=== PATIENT | male | born 1975 | race Caucasian/White ===

== ENCOUNTER 2019-01-21 19:51 | Emergency (ER) | payer SELFPAY ==
[~2019-01-21] VITALS: Ht 175.3 cm; Wt 87.4 kg
[2019-01-21 19:56] VITALS: Ht 175.3 cm; Wt 87.4 kg
[2019-01-21] MEDS ORDERED: SULF1TAB31 PO (22:20)
[2019-01-21] MEDS ORDERED: IBUP800T48 PO (22:20)
[2019-01-21] MEDS ORDERED: CEPH-443 PO (22:20)
[2019-01-21 22:34] VITALS: BP 141/90; PULSE 82; RESP 18
--- NOTE | 2019-01-22 05:31 | ERD ---
ER Documentation Chief Complaint Chief Complaint R LEG PAIN X'S 2 DAYS. HPI 43-year-old male with no significant past medical history presenting to the emergency department complains of redness and swelling and pain to his right lower extremity for 1 day..He states the area began as one lesion and spread outwards. Patient reports fever yesterday of 100.5 F. He denies any fevers today. He tried no medication for relief of symptoms. Associated symptoms include mild pain. He took Tylenol at home with some relief. He denies any dizziness, fevers, or other symptoms. ROS All systems reviewed and are negative except as per history of present illness. Medications Home Meds Active Scripts Ibuprofen* (Motrin*) 800 Mg Tab, 800 MG PO Q6, #30 TAB Prov:VANNA CRUMP PA-C 01/21/19 Sulfamethoxazole/Trimethoprim* (Bactrim Ds* Tablet) 1 Each Tablet, 1 TAB PO BID, #14 TAB Prov:VANNA CRUMP PA-C 01/21/19 Cephalexin* (Keflex*) 500 Mg Capsule, 500 MG PO QID for 7 Days, CAP Prov:VANNA CRUMP PA-C 01/21/19 Allergies Allergies: Coded Allergies: No Known Allergy (Unverified , 01/21/19) PMhx/Soc Medical and Surgical Hx: pt denies Medical Hx History of Surgery: No Anesthesia Reaction: No Hx Neurological Disorder: No Hx Respiratory Disorders: No Hx Cardiac Disorders: No Hx Psychiatric Problems: No Hx Miscellaneous Medical Probl: No Hx Alcohol Use: No Hx Substance Use: No Hx Tobacco Use: No Smoking Status: Never smoker FmHx Family History: No diabetes Physical Exam Vitals Vital Signs Date Temp Pulse Resp B/P (MAP) Pulse Ox O2 O2 Flow FiO2 Time Delivery Rate 01/21/19 98.3 82 18 141/90 97 Room Air 22:34 (107) 01/21/19 99.4 103 20 171/104 100 19:56 (126) Physical Exam Const: No acute distress Head: Atraumatic Eyes: Normal Conjunctiva ENT: Normal External Ears, Nose and Mouth. Neck: Full range of motion. No meningismus. Resp: Clear to auscultation bilaterally Cardio: Regular rate and rhythm, no murmurs Skin: Localized area of erythema to the right lower extremity just inferior to the right knee. Area is not circumferential. There is mild warmth. No vesicles. Patient is neurovascularly intact. Back: No midline or flank tenderness Ext: No cyanosis, or edema Neur: Awake and alert Psych: Normal Mood and Affect Procedures/MDM 43-year-old male presenting to the emergency department with signs and symptoms most consistent with localized cellulitis to the right lower extremity. No evidence of necrotizing fasciitis. I doubt gangrene or sepsis. Patient is nontoxic and afebrile and well-appearing and he is appropriate for discharge and further outpatient management with prescriptions. Patient was given strict return precautions and he demonstrated good understanding. He was otherwise in agreement with the diagnosis and the plan. No evidence of life-threatening pathology at time of discharge. Pt/family in agreement with discharge plan/diagnosis. Pt/family advised to return immediately with any new or worsen ing symptoms. Follow-up with primary care physician within the next 1-2 days. Patient's blood pressure was elevated (>120/80) but appears stable without evidence of hypertension emergency or urgency. The patient is to follow-up and pursue outpatient monitoring and therapy with their primary care physician within 1 week and return immediately if they have any new, worsening, or c oncerning symptoms. Disclaimer: Inadvertent spelling and grammatical errors are likely due to EHR/dictation software use and do not reflect on the overall quality of patient care. Also, please note that the electronic time recorded on this note does not necessarily reflect the actual time of the patient encounter. Departure Diagnosis: Primary Impression: Cellulitis of right leg Condition: Fair Patient Instructions: Cellulitis Referrals: [facility] () Usted se munguia hecho un examen mdico de control que le indica que no est en chano condicin que requiera tratamiento urgente en el Departamento de Emergencia. Un estudio ms profundo y el tratamiento de joseph condicin pueden esperar sin ningn riesgo hasta que usted sea atendida/o en el consultorio de joseph mdico o chano clnica. Es responsabilidad suya arreglar chano yordan para el seguimiento del kira. MANEJO DE CONDICIONES NO URGENTES EN EL FUTURO 1) Si usted tiene un mdico de atencin primaria: Usted debera llamar a joseph mdico de atencin primaria antes de venir al departamento de emergencia. Despus de las horas de consultorio, joseph doctor o joseph asociado/a est disponible por telfono. El mdico o enfermero de eusebio en el servicio telefnico puede asesorarle por nissa medio para atender el problema, o kira contrario se puede programar chano yordan. 2) Si usted no tiene un mdico de atencin primaria: Llame al mdico o clnica de referencia que aparece abajo glenn las horas de consultorio para hacer chano yordan para que le vean. CLINICAS: [facility] [phone] [facility] [phone] [facility] [phone] [address] [place] [id number] [phone] [place] [address] [phone] [place] [id number] [phone] Additional Instructions: Llame al doctor MAANA y ernestine chano YORDAN PARA DENTRO DE 1-2 FITCH.Dgale a la secretaria que nosotros le instruimos hacer esta yordan.Avise o llame si joseph c ondicin se empeora antes de la yordan. Regresa aqui si peor o no mejor. VANNA CRUMP PA-C January 22, 2019 05:31
== END 2019-01-21 22:35 | disposition home or self-care (01) ==
LOC: FTE 19:51
DX: L03.115 Cellulitis of right lower limb (principal)
CPT/HCPCS: 99283